=== PATIENT | male | born 1980 | race Hispanic/Latino ===

== ENCOUNTER 2016-11-20 12:46 | Emergency (ER) | payer OTHER, SELFPAY ==
[~2016-11-20] VITALS: Ht 188 cm; Wt 119.2 kg
[~2016-11-20 12:46] MED LIST: ADV250INH INH; ADV500INH INH; ALBU17IN INH; ALBU83IN INH; COMBAER6 INH; NEXI20CA PO; SING10TA32 PO; XOLA150S SC
[2016-11-20] MEDS ORDERED: TYLE325T5 PO (13:06)
[2016-11-20 15:08] VITALS: BP 122/64
== END 2016-11-20 16:08 | disposition home or self-care (01) ==
LOC: M ED 12:46
DX: K42.0 Umbilical hernia with obstruction, without gangrene (principal); K21.9 Gastro-esophageal reflux disease without esophagitis; Z79.899 Other long term (current) drug therapy; Z88.0 Allergy status to penicillin